=== PATIENT | male | born 1955 | race Caucasian/White ===

== ENCOUNTER 2021-01-28 18:12 | Observation (INO) | payer BC ==
[2021-01-28 21:45] VITALS: BMI 31.6
[2021-01-29] MEDS ORDERED: Ondansetron PF 4 MG/2 ML Vial IVP PRN (04:22)
[2021-01-29] MEDS ORDERED: Acetaminophen 325 MG TAB PO PRN (04:22)
[2021-01-29] MEDS ORDERED: Ondansetron ODT 4 MG TAB PO PRN (04:22)
[2021-01-29] MEDS ORDERED: Acetaminophen 650 MG Suppository PR PRN (04:22)
[2021-01-29] MEDS ORDERED: Nitroglycerin 0.4 MG TAB (25 Tab Bottle) SL PRN (04:22)
[2021-01-29 05:41] LABS: Troponin I Less than 0.010 ng/mL (< 0.028)
[2021-01-29] MEDS ORDERED: Aspirin Chewable 81 MG TAB PO SCH (09:00)
[2021-01-29] MEDS ORDERED: Enoxaparin Sodium 40 MG/0.4 ML SYRINGE SC SCH (09:00)
[2021-01-29] MEDS ORDERED: Hydrochlorothiazide 25 MG TAB PO SCH (09:00)
[2021-01-29] MEDS: Amlodipine 5 MG TAB PO SCH ×2 (13:45→19:36)
[2021-01-29] MEDS ORDERED: traMADol HCl 50 MG TAB PO PRN (17:25)
[2021-01-29 17:43] LABS: #Basophils 0.1 thou/uL (0.0-0.2); #Eosinphils 0.2 thou/uL (0.0-0.7); #Lymphocytes 2.6 thou/uL (1.20-3.40); #Monocytes 1.1 thou/uL (0.11-0.59); #Neutrophils 6.2 thou/uL (1.40-6.50); %Basophils 0.6 % (0.0-1.0); %Eosinophils 1.8 % (0.0-10.0); %Monocytes 10.8 % (0.0-10.0); %Neutrophils 60.8 % (42.0-75.0); Hemoglobin 14.6 g/dL (14.0-18.0); Mean Corpuscular HGB CONC 34.9 g/dL (32.0-36.0); Mean Corpuscular Hemoglobin 30.1 pg (27.0-31.0); Mean Corpuscular Volume 86.3 fL (78.0-98.0); Mean Platelet Volume 9.1 fL (7.4-10.4); Platelet Count 175 thou/uL (130-400); RBC Distribution Width 13.9 % (11.5-14.5); Red Blood Cell (RBC) Count 4.84 mill/uL (4.70-6.10); White Blood Cell (WBC) Count 10.1 thou/uL (4.8-10.8)
[2021-01-29 17:53] LABS: Anion Gap 14 mmol/L (10-20); BUN (Urea Nitrogen) 14 mg/dL (8.4-25.7); Calc. Creatinine Clearance 123 mL/min (70-130); Calcium 9.6 mg/dL (7.8-10.44); Carbon Dioxide 27 mmol/L (23-31); Chloride 102 mmol/L (98-107); Glucose 142 mg/dL (80-115); Potassium 4.3 mmol/L (3.5-5.1); Sodium 139 mmol/L (136-145)
[2021-01-29 19:48] VITALS: BP 166/79; TEMP 98.1
[2021-01-29] MEDS ORDERED: Rosuvastatin 20 MG TAB PO SCH (21:00)
[2021-01-29] MEDS ORDERED: Ezetimibe 10 MG TAB PO SCH (21:00)
== END 2021-01-29 20:03 | disposition home or self-care (01) ==
LOC: 2NO 18:12
PROVIDERS: ADMIT Family Medicine; ATTEND Nurse Practitioner Acute Care
DX: R07.9 Chest pain, unspecified (principal); I25.10 Atherosclerotic heart disease of native coronary artery without angina pectoris; I10 Essential (primary) hypertension; E78.5 Hyperlipidemia, unspecified; G89.29 Other chronic pain; M54.9 Dorsalgia, unspecified; F17.210 Nicotine dependence, cigarettes, uncomplicated; Z79.899 Other long term (current) drug therapy
CPT/HCPCS: 36415; 78452; 80048; 83880; 84484; 85025; 93017; 94760; 96372; A9500; G0378; J0153; J1650

== ENCOUNTER 2022-01-19 16:31 | Inpatient (IN) | payer BC, MEDICARE ==
[2022-01-19] MEDS ORDERED: Albuterol Sulfate 2.5 mg/3 ml Neb ONE ×3 (16:58→19:50)
[2022-01-19] MEDS ORDERED: fentaNYL Citrate/PF 100 MCG/2 ML SYRINGE ONE ×2 (17:00→18:05)
[2022-01-19 17:07] LABS: Base Excess (BEa) -4.2 mEq/L (-2.0 to +3.0); CO2 Tension 44.4 mmHg (35.0-45.0); Calcium, Ionized (arterial) 1.19 mmol/L (1.12-1.30); Carboxyhemoglobin (COHb) 1.2 gm% (0.0-3.0); Hemoglobin (Hb) 15.5 g/dL (14.0-18.0); O2 Tension (PaO2), arterial 69.1 mmHg (> 80.0); Potassium - ABG Lab 4.17 mmol/L (3.70-5.30); pH, Arterial 7.31 (7.35-7.45)
[2022-01-19 17:08] LABS: Puncture Site RRA
[2022-01-19] MEDS ORDERED: Dexamethasone 20 MG/5 ML VIAL ONE (18:26)
[2022-01-19] MEDS ORDERED: Rocuronium Bromide 10 MG/ML (10ML VIAL) ONE (18:26)
[2022-01-19] MEDS ORDERED: PROPOFOL 200 MG/20 ML VIAL ONE (18:26)
[2022-01-19] MEDS ORDERED: Succinylcholine 200 MG/10 ml SYRINGE FS ONE (18:26)
[2022-01-19] MEDS ORDERED: cefOXitin 2 GM VIAL ONE (18:39)
[2022-01-19] MEDS ORDERED: HYDROmorphone 2 MG/ML VIAL SLOW IVP PRN (18:56)
[2022-01-19] MEDS ORDERED: Promethazine HCl 25 MG/ML VIAL IM PRN ×4 (18:56→20:41)
[2022-01-19] MEDS ORDERED: Ondansetron HCl/PF 4 MG/2 ML Vial IVP PRN ×2 (18:56→19:56)
[2022-01-19] MEDS ORDERED: Promethazine HCl 25 MG/ML VIAL IVPB PRN ×2 (18:56→19:56)
[2022-01-19] MEDS ORDERED: SUGAMMADEX SODIUM 200 MG/2 ML VIAL ONE (19:13)
[2022-01-19] MEDS ORDERED: fentaNYL Citrate/PF 2,000 MCG in Sodium Chloride 0.9% 60 ML IV PRN (19:54)
[2022-01-19] MEDS ORDERED: diphenhydrAMINE 25 MG CAP PO PRN (19:54)
[2022-01-19] MEDS ORDERED: Ondansetron PF 4 MG/2 ML Vial IVP PRN ×2 (19:54→20:41)
[2022-01-19] MEDS ORDERED: Morphine 2 MG/ML VIAL ONE (19:54)
[2022-01-19] MEDS ORDERED: Naloxone HCl 0.4 mg/ml Vial IV PRN (19:54)
[2022-01-19] MEDS ORDERED: diphenhydrAMINE 50 MG/ML VIAL IM PRN (19:54)
[2022-01-19] MEDS ORDERED: diphenhydrAMINE 50 MG/ML VIAL IVP PRN (19:54)
[2022-01-19] MEDS ORDERED: PACU-Morphine 4MG/ML VIAL SLOW IVP PRN (19:56)
[2022-01-19] MEDS ORDERED: Communication Order-Pharmacy FS SCH (20:00)
[2022-01-19] MEDS ORDERED: hydrALAZINE 20 MG/ML VIAL SLOW IVP PRN (20:41)
[2022-01-19] MEDS ORDERED: Piperacillin/Tazobactam 3.375 GM in Sodium Chloride 0.9% 100 ML IVPB SCH ×2 (22:00→23:59)
[2022-01-19] MEDS: D5 1/2 NS w/20 mEq KCL 1,000 ML IV SCH (23:11)
[2022-01-19] MEDS: Famotidine 20 MG TAB PO SCH (23:12)
[2022-01-19] MEDS: Ketorolac Tromethamine 30 MG/ML VIAL IVP SCH (23:13)
[2022-01-19] MEDS: Famotidine/PF 20 mg/2ml Vial SLOW IVP SCH (23:32)
[2022-01-20] MEDS: Albuterol Sulfate 2.5 mg/3 ml Neb NEB SCH ×5 (00:27→22:35)
[2022-01-20 01:12] VITALS: BMI 30.6
[2022-01-20] MEDS: Piperacillin/Tazobactam 3.375 GM in Sodium Chloride 0.9% 100 ML IVPB SCH ×3 (03:35→18:06)
[2022-01-20 05:47] LABS: Anion Gap 11 mmol/L (10-20); BUN (Urea Nitrogen) 38 mg/dL (8.4-25.7); Calc. Creatinine Clearance 126 mL/min (70-130); Calcium 8.6 mg/dL (7.8-10.44); Carbon Dioxide 27 mmol/L (23-31); Chloride 103 mmol/L (98-107); Estimated GFR 96; Glucose 164 mg/dL (80-115); Potassium 4.3 mmol/L (3.5-5.1); Sodium 137 mmol/L (136-145)
[2022-01-20] MEDS: Ketorolac Tromethamine 30 MG/ML VIAL IVP SCH ×3 (06:04→18:07)
[2022-01-20] MEDS: D5 1/2 NS w/20 mEq KCL 1,000 ML IV SCH ×3 (06:18→16:31)
[2022-01-20 06:22] LABS: Band 37 % (5-11); Hemoglobin 13.3 g/dL (14.0-18.0); Lymphocytes 3 % (21-51); MDiff Complete? YES; Mean Corpuscular Hemoglobin 30.1 pg (27.0-31.0); Mean Corpuscular Volume 91.4 fL (78.0-98.0); Mean Platelet Volume 10.6 fL (7.4-10.4); Monocytes 7 % (0-10); Neutrophil 53 % (42-75); Platelet Count 152 thou/uL (130-400); RBC Distribution Width 12.5 % (11.5-14.5); White Blood Cell (WBC) Count 9.3 thou/uL (4.8-10.8)
[2022-01-20] MEDS: Enoxaparin Sodium 40 MG/0.4 ML SYRINGE SC SCH (08:49)
[2022-01-20] MEDS: Famotidine/PF 20 mg/2ml Vial SLOW IVP SCH ×2 (08:49→20:56)
[2022-01-20] MEDS: Famotidine 20 MG TAB PO SCH ×2 (08:51→20:57)
[2022-01-21] MEDS: Ketorolac Tromethamine 30 MG/ML VIAL IVP SCH ×5 (00:39→23:36)
[2022-01-21] MEDS: D5 1/2 NS w/20 mEq KCL 1,000 ML IV SCH ×2 (00:42→09:31)
[2022-01-21] MEDS: Piperacillin/Tazobactam 3.375 GM in Sodium Chloride 0.9% 100 ML IVPB SCH ×3 (02:13→18:18)
[2022-01-21 06:43] LABS: Hemoglobin 12.3 g/dL (14.0-18.0); Mean Corpuscular HGB CONC 33.4 g/dL (32.0-36.0); Mean Corpuscular Hemoglobin 30.4 pg (27.0-31.0); Mean Corpuscular Volume 90.9 fL (78.0-98.0); Mean Platelet Volume 10.3 fL (7.4-10.4); Platelet Count 148 thou/uL (130-400); RBC Distribution Width 12.5 % (11.5-14.5); Red Blood Cell (RBC) Count 4.05 mill/uL (4.70-6.10); White Blood Cell (WBC) Count 8.6 thou/uL (4.8-10.8)
[2022-01-21] MEDS: Albuterol Sulfate 2.5 mg/3 ml Neb NEB SCH ×3 (06:44→19:05)
[2022-01-21 06:52] LABS: Band 29 % (5-11); Lymphocytes 7 % (21-51); MDiff Complete? YES; Monocytes 10 % (0-10); Neutrophil 54 % (42-75)
[2022-01-21 06:53] LABS: Anion Gap 14 mmol/L (10-20); BUN (Urea Nitrogen) 28 mg/dL (8.4-25.7); Calc. Creatinine Clearance 142 mL/min (70-130); Calcium 8.6 mg/dL (7.8-10.44); Carbon Dioxide 23 mmol/L (23-31); Chloride 105 mmol/L (98-107); Estimated GFR 99; Glucose 130 mg/dL (80-115); Potassium 3.8 mmol/L (3.5-5.1); Sodium 138 mmol/L (136-145)
[2022-01-21] MEDS: Famotidine/PF 20 mg/2ml Vial SLOW IVP SCH ×2 (09:31→20:20)
[2022-01-21] MEDS: Famotidine 20 MG TAB PO SCH ×2 (09:32→20:32)
[2022-01-21] MEDS: Enoxaparin Sodium 40 MG/0.4 ML SYRINGE SC SCH (09:32)
[2022-01-21] MEDS: Lidocaine 5% Patch TD SCH (20:20)
[2022-01-22] MEDS: Albuterol Sulfate 2.5 mg/3 ml Neb NEB SCH ×4 (01:12→19:43)
[2022-01-22] MEDS: Piperacillin/Tazobactam 3.375 GM in Sodium Chloride 0.9% 100 ML IVPB SCH ×3 (01:35→18:49)
[2022-01-22] MEDS: D5 1/2 NS w/20 mEq KCL 1,000 ML IV SCH ×3 (03:10→18:18)
[2022-01-22] MEDS: Enoxaparin Sodium 40 MG/0.4 ML SYRINGE SC SCH (10:17)
[2022-01-22] MEDS: Famotidine 20 MG TAB PO SCH ×2 (10:19→21:28)
[2022-01-22] MEDS: Famotidine/PF 20 mg/2ml Vial SLOW IVP SCH ×2 (10:19→21:25)
[2022-01-22] MEDS: Transdermal Patch Removal TOP SCH (11:30)
[2022-01-22] MEDS: Lidocaine 5% Patch TD SCH (21:25)
[2022-01-23] MEDS: Albuterol Sulfate 2.5 mg/3 ml Neb NEB SCH ×4 (01:16→19:13)
[2022-01-23] MEDS: D5 1/2 NS w/20 mEq KCL 1,000 ML IV SCH (01:49)
[2022-01-23] MEDS: Piperacillin/Tazobactam 3.375 GM in Sodium Chloride 0.9% 100 ML IVPB SCH ×3 (01:49→18:50)
[2022-01-23] MEDS: Famotidine 20 MG TAB PO SCH ×2 (10:32→21:02)
[2022-01-23] MEDS: Famotidine/PF 20 mg/2ml Vial SLOW IVP SCH ×2 (10:32→21:04)
[2022-01-23] MEDS: Enoxaparin Sodium 40 MG/0.4 ML SYRINGE SC SCH (10:32)
[2022-01-23] MEDS: Transdermal Patch Removal TOP SCH (10:33)
[2022-01-23] MEDS ORDERED: D5 1/2 NS w/20 mEq KCL 1,000 ML IV SCH (14:09)
[2022-01-23] MEDS ORDERED: Acetaminophen 325 MG TAB PO PRN (14:09)
[2022-01-23] MEDS ORDERED: Furosemide 20 MG/2 ML VIAL SLOW IVP SCH (14:30)
[2022-01-23] MEDS: HYDROcodone/Acetaminophen 7.5/325 mg Tablet PO PRN (21:02)
[2022-01-23] MEDS: Rosuvastatin 20 MG TAB PO SCH (21:02)
[2022-01-23] MEDS: Amlodipine 5 MG TAB PO SCH (21:02)
[2022-01-23] MEDS: Lidocaine 5% Patch TD SCH (21:02)
[2022-01-24] MEDS: Albuterol Sulfate 2.5 mg/3 ml Neb NEB SCH ×4 (01:08→19:10)
[2022-01-24] MEDS: Piperacillin/Tazobactam 3.375 GM in Sodium Chloride 0.9% 100 ML IVPB SCH ×3 (01:10→19:25)
[2022-01-24] MEDS ORDERED: Furosemide 20 MG/2 ML VIAL SLOW IVP SCH (09:30)
[2022-01-24] MEDS: Enoxaparin Sodium 40 MG/0.4 ML SYRINGE SC SCH (09:35)
[2022-01-24] MEDS: Famotidine 20 MG TAB PO SCH ×2 (09:35→20:26)
[2022-01-24] MEDS: Amlodipine 5 MG TAB PO SCH ×2 (09:35→20:27)
[2022-01-24] MEDS: Famotidine/PF 20 mg/2ml Vial SLOW IVP SCH ×2 (09:36→21:30)
[2022-01-24] MEDS: Transdermal Patch Removal TOP SCH (09:36)
[2022-01-24] MEDS: Hydrochlorothiazide 25 MG TAB PO SCH (09:36)
[2022-01-24] MEDS: Fentanyl 100 MCG/2 ML VIAL SLOW IVP PRN (13:37)
[2022-01-24] MEDS: Lidocaine 5% Patch TD SCH (20:26)
[2022-01-24] MEDS: Rosuvastatin 20 MG TAB PO SCH (20:26)
[2022-01-24] MEDS: Zolpidem Tartrate 5 MG TAB PO PRN (20:32)
[2022-01-25] MEDS: Albuterol Sulfate 2.5 mg/3 ml Neb NEB SCH ×4 (00:19→18:25)
[2022-01-25] MEDS: Piperacillin/Tazobactam 3.375 GM in Sodium Chloride 0.9% 100 ML IVPB SCH ×3 (02:52→18:00)
[2022-01-25] MEDS: HYDROcodone/Acetaminophen 7.5/325 mg Tablet PO PRN (04:09)
[2022-01-25] MEDS: Enoxaparin Sodium 40 MG/0.4 ML SYRINGE SC SCH (10:14)
[2022-01-25] MEDS: Hydrochlorothiazide 25 MG TAB PO SCH (10:15)
[2022-01-25] MEDS: Famotidine 20 MG TAB PO SCH ×2 (10:15→20:40)
[2022-01-25] MEDS: Amlodipine 5 MG TAB PO SCH ×2 (10:15→20:40)
[2022-01-25] MEDS: Transdermal Patch Removal TOP SCH (10:16)
[2022-01-25] MEDS: Famotidine/PF 20 mg/2ml Vial SLOW IVP SCH ×2 (10:16→20:42)
[2022-01-25] MEDS: Rosuvastatin 20 MG TAB PO SCH (20:40)
[2022-01-25] MEDS: Lidocaine 5% Patch TD SCH (20:42)
[2022-01-25] MEDS: Zolpidem Tartrate 5 MG TAB PO PRN (20:45)
[2022-01-26] MEDS: Albuterol Sulfate 2.5 mg/3 ml Neb NEB SCH ×2 (01:27→08:05)
[2022-01-26] MEDS: Piperacillin/Tazobactam 3.375 GM in Sodium Chloride 0.9% 100 ML IVPB SCH ×2 (01:31→09:26)
[2022-01-26] MEDS ORDERED: Milk Of Magnesia 30 ML UDCUP PO PRN (08:34)
[2022-01-26] MEDS: Amlodipine 5 MG TAB PO SCH (09:26)
[2022-01-26] MEDS: Enoxaparin Sodium 40 MG/0.4 ML SYRINGE SC SCH (09:26)
[2022-01-26] MEDS: Hydrochlorothiazide 25 MG TAB PO SCH (09:26)
[2022-01-26] MEDS: Famotidine 20 MG TAB PO SCH (09:26)
[2022-01-26] MEDS: Famotidine/PF 20 mg/2ml Vial SLOW IVP SCH (09:27)
[2022-01-26] MEDS: Transdermal Patch Removal TOP SCH (09:27)
[2022-01-26 10:03] VITALS: BP 126/65; TEMP 97
[2022-01-26] MEDS: Fentanyl 100 MCG/2 ML VIAL SLOW IVP PRN (10:05)
== END 2022-01-26 13:13 | disposition home health service (06) | DRG 329 ==
LOC: SDC 16:31 → SURG B 19:31
PROVIDERS: ADMIT Surgery; ATTEND Surgery
PROC: 0DB80ZZ Excision of Small Intestine, Open Approach (ICD-10-PCS; principal; 2022-01-20)
DX: K63.1 Perforation of intestine (nontraumatic) (principal); K65.9 Peritonitis, unspecified; Z23 Encounter for immunization; Z20.822 Contact with and (suspected) exposure to COVID-19; I10 Essential (primary) hypertension; Z85.46 Personal history of malignant neoplasm of prostate; Z98.890 Other specified postprocedural states; Z79.899 Other long term (current) drug therapy
CPT/HCPCS: 36415; 36600; 71045; 80048; 82805; 85025; 88307; 90471; 90732; 94640; 97139; G0009; J0694; J1100; J1650; J1885; J1940; J2270; J2543; J2704; J3010; J3480; J3490; J7611; J7620; S0028

== ENCOUNTER 2023-05-27 09:55 | Inpatient (IN) | payer MEDICARE ==
[2023-05-27 10:58] LABS: #Basophils 0.1 thou/uL (0.0-0.2); #Eosinphils 0.1 thou/uL (0.0-0.7); #Monocytes 1.2 thou/uL (0.11-0.59); #Neutrophils 11.3 thou/uL (1.40-6.50); %Basophils 0.4 % (0.0-1.0); %Eosinophils 0.6 % (0.0-10.0); %Monocytes 8.4 % (0.0-10.0); %Neutrophils 81.2 % (42.0-75.0); Hematocrit 36.9 % (42.0-52.0); Hemoglobin 11.8 g/dL (14.0-18.0); Mean Corpuscular Hemoglobin 26.6 pg (27.0-31.0); Mean Corpuscular Volume 83.1 fl (78.0-98.0); Mean Platelet Volume 11.6 fL (7.4-10.4); Platelet Count 169 10x3/uL (130-400); RBC Distribution Width 14.2 % (11.5-14.5); Red Blood Cell (RBC) Count 4.44 mill/uL (4.70-6.10)
[2023-05-27] MEDS ORDERED: Nitroglycerin 0.4 MG TAB (25 Tab Bottle) ONE (11:03)
[2023-05-27] MEDS ORDERED: Iopamidol-370 76% 500 ML MDV (1 ML CHARGE) ONE (11:22)
[2023-05-27 11:26] LABS: Critical Call Chem Troponin I NUR.NS2 @1126; Troponin I 0.281 ng/mL (< 0.028)
[2023-05-27 11:42] LABS: INR-International Normal Ratio 1.1; Prothrombin Time 14.5 sec (12.0-14.7)
[2023-05-27 11:43] LABS: PTT 30.3 sec (22.9-36.1)
[2023-05-27] MEDS ORDERED: Enoxaparin 60 MG (0.6 mL) SYRINGE ONE (12:55)
[2023-05-27 13:59] LABS: Albumin 3.3 g/dL (3.4-4.8)
[2023-05-27 14:01] LABS: Calcium 7.5 mg/dL (7.8-10.44); Chloride 107 mmol/L (98-107); Potassium 3.4 mmol/L (3.5-5.1); Sodium 138 mmol/L (136-145)
[2023-05-27 14:02] LABS: Globulin 2.8 g/dL (2.4-3.5); Glucose 131 mg/dL (80-115); Protein, Total 6.1 g/dL (5.8-8.1)
[2023-05-27 14:03] LABS: Anion Gap 13 mmol/L (10-20); Carbon Dioxide 21 mmol/L (23-31)
[2023-05-27 14:04] LABS: Bilirubin, Total 0.4 mg/dL (0.2-1.2)
[2023-05-27 14:05] LABS: Alkaline Phosphatase 77 U/L (40-110); Calc. Creatinine Clearance 0 mL/min (70-130); Estimated GFR 100
[2023-05-27 14:06] LABS: BUN (Urea Nitrogen) 10 mg/dL (8.4-25.7)
[2023-05-27 14:07] LABS: AST (SGOT) 17 U/L (5-34)
[2023-05-27 14:08] LABS: ALT (SGPT) 17 U/L (8-55)
[2023-05-27] MEDS ORDERED: Bisacodyl 10 MG SUPP PR PRN (15:58)
[2023-05-27] MEDS ORDERED: Senokot S 8.6-50 MG TAB PO PRN (15:58)
[2023-05-27] MEDS ORDERED: Acetaminophen 325 MG TAB PO PRN (15:58)
[2023-05-27] MEDS ORDERED: Ondansetron PF 4 MG/2 ML Vial IVP PRN (15:58)
[2023-05-27] MEDS ORDERED: Bisacodyl 5 MG TAB PO PRN (15:58)
[2023-05-27] MEDS ORDERED: Electrolyte Replacement Protocol 1 EACH FS SCH (16:30)
[2023-05-27 17:08] LABS: Hemoglobin A1c 6.5 % (4.0-6.0)
[2023-05-27 17:11] LABS: Magnesium 1.7 mg/dL (1.6-2.6)
[2023-05-27] MEDS ORDERED: Magnesium 2 GM/50 ML(in water) 2 GM in Premix 1 BAG IVPB SCH ×2 (17:15→21:15)
[2023-05-27] MEDS ORDERED: Electrolyte Replacement Protocol FS PRN (17:15)
[2023-05-27] MEDS ORDERED: Potassium Chloride 20 MEQ TAB PO SCH ×2 (17:15→21:15)
[2023-05-27 18:03] LABS: Critical Call Chem Troponin I NUR.NS2 @1126; Troponin I 1.117 ng/mL (< 0.028)
[2023-05-27 21:16] VITALS: BMI 30.4
[2023-05-27 22:15] LABS: Critical Call Chem Troponin I NUR.BR6@2214; Troponin I 1.307 ng/mL (< 0.028)
[2023-05-27] MEDS ORDERED: Enoxaparin 100 MG (1 mL) SYRINGE SC SCH (23:00)
[2023-05-28 05:26] LABS: #Basophils 0.1 thou/uL (0.0-0.2); #Eosinphils 0.2 thou/uL (0.0-0.7); #Monocytes 1.1 thou/uL (0.11-0.59); #Neutrophils 6.5 thou/uL (1.40-6.50); %Basophils 0.5 % (0.0-1.0); %Eosinophils 1.6 % (0.0-10.0); %Lymphocytes 21.8 % (21.0-51.0); %Monocytes 10.7 % (0.0-10.0); %Neutrophils 65.1 % (42.0-75.0); Hematocrit 37.1 % (42.0-52.0); Hemoglobin 11.9 g/dL (14.0-18.0); Mean Corpuscular HGB CONC 32.1 g/dL (32.0-36.0); Mean Corpuscular Volume 84.1 fl (78.0-98.0); Mean Platelet Volume 11.9 fL (7.4-10.4); Platelet Count 172 10x3/uL (130-400); RBC Distribution Width 14.4 % (11.5-14.5); Red Blood Cell (RBC) Count 4.41 mill/uL (4.70-6.10)
[2023-05-28 05:52] LABS: INR-International Normal Ratio 1.1; PTT 39.6 sec (22.9-36.1); Prothrombin Time 14.7 sec (12.0-14.7)
[2023-05-28 06:33] LABS: ALT (SGPT) 17 U/L (8-55); AST (SGOT) 22 U/L (5-34); Albumin 3.6 g/dL (3.4-4.8); Alkaline Phosphatase 79 U/L (40-110); Anion Gap 11 mmol/L (10-20); BUN (Urea Nitrogen) 10 mg/dL (8.4-25.7); Bilirubin, Direct 0.2 mg/dL (0.1-0.3); Bilirubin, Total 0.3 mg/dL (0.2-1.2); Calc. Creatinine Clearance 133 mL/min (70-130); Calcium 8.7 mg/dL (7.8-10.44); Carbon Dioxide 26 mmol/L (23-31); Cardiac Risk 4.2 (Less than 4.5); Chloride 105 mmol/L (98-107); Cholesterol 113 mg/dl (< 200 Desired); Estimated GFR 97; Glucose 104 mg/dL (80-115); HDL Cholesterol 27 mg/dL (>60 Neg Risk); Iron 29 ug/dL (65-175); Iron Binding Capacity, Total 335 mcg/dL (261-462); LDL Cholesterol, Calculated 66 mg/dL; Magnesium 2.3 mg/dL (1.6-2.6); Potassium 4.4 mmol/L (3.5-5.1); Protein, Total 6.5 g/dL (5.8-8.1); Sodium 138 mmol/L (136-145); Triglycerides 100 mg/dL (Less than 150)
[2023-05-28 06:34] LABS: Iron 29 ug/dL (65-175); Iron Binding Capacity, Total 331 mcg/dL (261-462)
[2023-05-28 06:50] LABS: Ferritin 26.79 ng/mL (22-322); Thyroid Stimulating Hormone 1.0924 uIU/mL (0.35-4.94)
[2023-05-28] MEDS: Enoxaparin 100 MG (1 mL) SYRINGE SC SCH ×2 (10:14→20:45)
[2023-05-28] MEDS: Ezetimibe 10 MG TAB PO SCH (20:47)
[2023-05-28] MEDS: Rosuvastatin 20 MG TAB PO SCH (20:47)
[2023-05-28] MEDS: Amlodipine 5 MG TAB PO SCH (20:47)
[2023-05-29 05:42] LABS: #Basophils 0.1 thou/uL (0.0-0.2); #Eosinphils 0.2 thou/uL (0.0-0.7); #Monocytes 0.9 thou/uL (0.11-0.59); #Neutrophils 6.3 thou/uL (1.40-6.50); %Basophils 0.6 % (0.0-1.0); %Lymphocytes 24.8 % (21.0-51.0); %Monocytes 9.3 % (0.0-10.0); Hematocrit 38.3 % (42.0-52.0); Hemoglobin 12.1 g/dL (14.0-18.0); Mean Corpuscular HGB CONC 31.6 g/dL (32.0-36.0); Mean Corpuscular Hemoglobin 26.8 pg (27.0-31.0); Mean Corpuscular Volume 84.9 fl (78.0-98.0); Mean Platelet Volume 12.2 fL (7.4-10.4); Platelet Count 172 10x3/uL (130-400); RBC Distribution Width 14.5 % (11.5-14.5); Red Blood Cell (RBC) Count 4.51 mill/uL (4.70-6.10)
[2023-05-29 05:48] LABS: Prothrombin Time 13.8 sec (12.0-14.7)
[2023-05-29 05:49] LABS: PTT 32.2 sec (22.9-36.1)
[2023-05-29 06:49] LABS: Anion Gap 12 mmol/L (10-20); BUN (Urea Nitrogen) 12 mg/dL (8.4-25.7); Calc. Creatinine Clearance 133 mL/min (70-130); Calcium 8.8 mg/dL (7.8-10.44); Carbon Dioxide 27 mmol/L (23-31); Chloride 102 mmol/L (98-107); Estimated GFR 97; Glucose 105 mg/dL (80-115); Magnesium 2.1 mg/dL (1.6-2.6); Potassium 4.2 mmol/L (3.5-5.1); Sodium 137 mmol/L (136-145)
[2023-05-29] MEDS: Amlodipine 5 MG TAB PO SCH ×2 (09:42→21:15)
[2023-05-29] MEDS: Enoxaparin 100 MG (1 mL) SYRINGE SC SCH ×2 (09:43→21:16)
[2023-05-29] MEDS: Rosuvastatin 20 MG TAB PO SCH (21:15)
[2023-05-29] MEDS: Ezetimibe 10 MG TAB PO SCH (21:15)
[2023-05-30 05:47] LABS: #Basophils 0.1 thou/uL (0.0-0.2); #Eosinphils 0.1 thou/uL (0.0-0.7); #Monocytes 1.3 thou/uL (0.11-0.59); #Neutrophils 6.5 thou/uL (1.40-6.50); %Basophils 0.5 % (0.0-1.0); %Eosinophils 1.3 % (0.0-10.0); %Lymphocytes 21.4 % (21.0-51.0); %Monocytes 12.4 % (0.0-10.0); Hematocrit 36.9 % (42.0-52.0); Mean Corpuscular HGB CONC 32.5 g/dL (32.0-36.0); Mean Corpuscular Hemoglobin 26.8 pg (27.0-31.0); Mean Corpuscular Volume 82.6 fl (78.0-98.0); Mean Platelet Volume 12.1 fL (7.4-10.4); Platelet Count 176 10x3/uL (130-400); RBC Distribution Width 14.3 % (11.5-14.5); Red Blood Cell (RBC) Count 4.47 mill/uL (4.70-6.10); White Blood Cell (WBC) Count 10.1 10x3/uL (4.8-10.8)
[2023-05-30 06:09] LABS: INR-International Normal Ratio 1.1; Prothrombin Time 14.4 sec (12.0-14.7)
[2023-05-30 06:10] LABS: PTT 36.5 sec (22.9-36.1)
[2023-05-30 06:15] LABS: Anion Gap 14 mmol/L (10-20); BUN (Urea Nitrogen) 13 mg/dL (8.4-25.7); Calc. Creatinine Clearance 134 mL/min (70-130); Calcium 8.9 mg/dL (7.8-10.44); Carbon Dioxide 26 mmol/L (23-31); Chloride 105 mmol/L (98-107); Estimated GFR 98; Glucose 113 mg/dL (80-115); Magnesium 2.1 mg/dL (1.6-2.6); Potassium 4.2 mmol/L (3.5-5.1); Sodium 141 mmol/L (136-145)
[2023-05-30] MEDS ORDERED: Ferrous Sulfate 325 MG TAB PO SCH (08:00)
[2023-05-30] MEDS ORDERED: Cyanocobalamin (Vitamin B-12) 1,000 MCG TAB PO SCH (09:00)
[2023-05-30] MEDS: Amlodipine 5 MG TAB PO SCH (10:41)
[2023-05-30 11:42] VITALS: BP 132/61; TEMP 98.5
[2023-05-30] MEDS ORDERED: Apixaban 5 MG TAB PO SCH (21:00)
== END 2023-05-30 14:30 | disposition home or self-care (01) | DRG 280 ==
LOC: ERS 09:55 → ERHOLD 15:58 → 2NO 20:23 → OBSVTOIN 05-29 09:10
PROVIDERS: ADMIT Family Medicine; ATTEND Internal Medicine
DX: I82.432 Acute embolism and thrombosis of left popliteal vein (principal); I26.92 Saddle embolus of pulmonary artery without acute cor pulmonale; I21.A1 Myocardial infarction type 2; I82.412 Acute embolism and thrombosis of left femoral vein; I25.10 Atherosclerotic heart disease of native coronary artery without angina pectoris; E78.5 Hyperlipidemia, unspecified; E78.00 Pure hypercholesterolemia, unspecified; C61 Malignant neoplasm of prostate; E87.6 Hypokalemia; E53.8 Deficiency of other specified B group vitamins; I10 Essential (primary) hypertension; F17.210 Nicotine dependence, cigarettes, uncomplicated; Z79.899 Other long term (current) drug therapy; Z79.82 Long term (current) use of aspirin; I25.2 Old myocardial infarction; Z90.49 Acquired absence of other specified parts of digestive tract; Z90.89 Acquired absence of other organs; Z98.890 Other specified postprocedural states; Z86.73 Personal history of transient ischemic attack (TIA), and cerebral infarction without residual deficits; Z71.6 Tobacco abuse counseling
CPT/HCPCS: 36415; 71045; 71275; 80048; 80053; 80061; 80076; 82607; 82728; 83036; 83540; 83550; 83735; 83880; 84443; 84484; 85025; 85046; 85610; 85730; 86850; 86870; 86900; 86901; 86922; 93005; 93306; 93970; 94760; 96372; 96374; G0378; J1650; J3475; Q9967